=== PATIENT | male | born 1935 | race Caucasian/White ===

== ENCOUNTER 2017-11-28 07:10 | Outpatient (CLI) | payer OTHER ==
[~2017-11-28 07:10] MED LIST: AVAPRO150 MG; CALTRATE 600600 MG; ECOTRIN325 M1; GLIMEPIRIDE2 MG; KOMBIGLYZE XR1 EAC1; VYTORIN 10-40 M1 TAB
== END 2017-11-28 07:28 | disposition home or self-care (01) ==
LOC: LAB 07:10
DX: I10 Essential (primary) hypertension (principal); I70.0 Atherosclerosis of aorta; I67.2 Cerebral atherosclerosis; E78.2 Mixed hyperlipidemia; E03.8 Other specified hypothyroidism; D64.89 Other specified anemias; M15.0 Primary generalized (osteo)arthritis; M85.89 Other specified disorders of bone density and structure, multiple sites; J43.2 Centrilobular emphysema; D49.2 Neoplasm of unspecified behavior of bone, soft tissue, and skin; Z68.26 Body mass index [BMI] 26.0-26.9, adult; N40.0 Benign prostatic hyperplasia without lower urinary tract symptoms; R97.0 Elevated carcinoembryonic antigen [CEA]; D51.1 Vitamin B12 deficiency anemia due to selective vitamin B12 malabsorption with proteinuria; D51.3 Other dietary vitamin B12 deficiency anemia; E55.9 Vitamin D deficiency, unspecified; E08.65 Diabetes mellitus due to underlying condition with hyperglycemia; Z86.010 Personal history of colon polyps; K63.5 Polyp of colon; D51.8 Other vitamin B12 deficiency anemias; R97.8 Other abnormal tumor markers; D50.8 Other iron deficiency anemias

== ENCOUNTER 2018-05-28 07:56 | Outpatient (CLI) | payer OTHER | END 2018-05-28 08:59 | disposition home or self-care (01) | LOC: LAB 07:56 | DX: R97.0 Elevated carcinoembryonic antigen [CEA] (principal); J44.1 Chronic obstructive pulmonary disease with (acute) exacerbation; D51.1 Vitamin B12 deficiency anemia due to selective vitamin B12 malabsorption with proteinuria; D51.3 Other dietary vitamin B12 deficiency anemia; E55.9 Vitamin D deficiency, unspecified; I10 Essential (primary) hypertension; E78.4 Other hyperlipidemia; E08.65 Diabetes mellitus due to underlying condition with hyperglycemia; Z86.010 Personal history of colon polyps; K63.5 Polyp of colon; D50.8 Other iron deficiency anemias; R97.8 Other abnormal tumor markers ==

== ENCOUNTER 2018-09-01 11:04 | Emergency (ER) | payer OTHER ==
[~2018-09-01] VITALS: Ht 175.3 cm; Wt 67.1 kg
[2018-09-01] MEDS ORDERED: MAXIMUM D310000 UNIT (11:26)
[2018-09-01] MEDS ORDERED: CALCIUM600 MG (11:26)
[2018-09-01] MEDS ORDERED: GLUCOPHAGE XR500 MG (11:27)
[2018-09-01] MEDS ORDERED: SYNTHROID50 MCG (11:27)
[2018-09-01] MEDS ORDERED: B-COMPLEX WITH1 EAC1 (11:27)
[2018-09-01] MEDS ORDERED: AVAPRO300 MG (11:28)
[2018-09-01] MEDS ORDERED: AMARYL (11:29)
== END 2018-09-01 16:06 | disposition home or self-care (01) ==
LOC: ER 11:04
DX: J06.9 Acute upper respiratory infection, unspecified (principal); B34.9 Viral infection, unspecified

== ENCOUNTER 2018-12-31 10:37 | Outpatient (CLI) | payer OTHER ==
[~2018-12-31 10:37] MED LIST changes: +AMARYL; +AVAPRO300 MG; +B-COMPLEX WITH1 EAC1; +CALCIUM600 MG; +GLUCOPHAGE XR500 MG; +MAXIMUM D310000 UNIT; +SYNTHROID50 MCG
== END 2018-12-31 15:30 | disposition home or self-care (01) ==
LOC: LAB 10:37
DX: I10 Essential (primary) hypertension (principal); I70.0 Atherosclerosis of aorta; I67.2 Cerebral atherosclerosis; E03.8 Other specified hypothyroidism; D64.89 Other specified anemias; M15.0 Primary generalized (osteo)arthritis; M85.89 Other specified disorders of bone density and structure, multiple sites; J43.2 Centrilobular emphysema; D49.2 Neoplasm of unspecified behavior of bone, soft tissue, and skin; Z68.26 Body mass index [BMI] 26.0-26.9, adult; E55.9 Vitamin D deficiency, unspecified; D50.8 Other iron deficiency anemias; D51.1 Vitamin B12 deficiency anemia due to selective vitamin B12 malabsorption with proteinuria; D51.3 Other dietary vitamin B12 deficiency anemia; R97.0 Elevated carcinoembryonic antigen [CEA]; E78.49 Other hyperlipidemia; Z86.010 Personal history of colon polyps; K63.5 Polyp of colon; E08.65 Diabetes mellitus due to underlying condition with hyperglycemia; D51.8 Other vitamin B12 deficiency anemias; K90.89 Other intestinal malabsorption; R97.8 Other abnormal tumor markers

== ENCOUNTER 2019-09-02 08:32 | Outpatient (CLI) | payer OTHER | END 2019-09-02 08:43 | disposition home or self-care (01) | LOC: LAB 08:32 | DX: I67.2 Cerebral atherosclerosis (principal); B96.5 Pseudomonas (aeruginosa) (mallei) (pseudomallei) as the cause of diseases classified elsewhere; I70.0 Atherosclerosis of aorta; I10 Essential (primary) hypertension; E03.8 Other specified hypothyroidism; D64.89 Other specified anemias; M15.0 Primary generalized (osteo)arthritis; M81.0 Age-related osteoporosis without current pathological fracture; M25.562 Pain in left knee; M25.561 Pain in right knee; J43.2 Centrilobular emphysema; D49.2 Neoplasm of unspecified behavior of bone, soft tissue, and skin; N39.0 Urinary tract infection, site not specified; Z68.27 Body mass index [BMI] 27.0-27.9, adult; D50.8 Other iron deficiency anemias; D51.1 Vitamin B12 deficiency anemia due to selective vitamin B12 malabsorption with proteinuria; R97.0 Elevated carcinoembryonic antigen [CEA]; E55.9 Vitamin D deficiency, unspecified; E78.49 Other hyperlipidemia; Z86.010 Personal history of colon polyps; K63.5 Polyp of colon; E08.65 Diabetes mellitus due to underlying condition with hyperglycemia; R97.20 Elevated prostate specific antigen [PSA]; D51.8 Other vitamin B12 deficiency anemias ==

== ENCOUNTER → 2019-12-03 09:09 | Outpatient (CLI) | payer OTHER | END | disposition home or self-care (01) | LOC: LAB 09:09 | DX: I70.0 Atherosclerosis of aorta (principal); I10 Essential (primary) hypertension; I67.2 Cerebral atherosclerosis; E03.8 Other specified hypothyroidism; D64.89 Other specified anemias; M15.0 Primary generalized (osteo)arthritis; M81.0 Age-related osteoporosis without current pathological fracture; M25.562 Pain in left knee; M25.561 Pain in right knee; J43.2 Centrilobular emphysema; D49.2 Neoplasm of unspecified behavior of bone, soft tissue, and skin; E53.9 Vitamin B deficiency, unspecified; Z68.27 Body mass index [BMI] 27.0-27.9, adult; N39.0 Urinary tract infection, site not specified; D50.8 Other iron deficiency anemias; D51.1 Vitamin B12 deficiency anemia due to selective vitamin B12 malabsorption with proteinuria; D51.3 Other dietary vitamin B12 deficiency anemia; R97.0 Elevated carcinoembryonic antigen [CEA]; E55.9 Vitamin D deficiency, unspecified; E78.49 Other hyperlipidemia; Z86.010 Personal history of colon polyps; K63.5 Polyp of colon; E08.65 Diabetes mellitus due to underlying condition with hyperglycemia; R97.20 Elevated prostate specific antigen [PSA]; D51.8 Other vitamin B12 deficiency anemias; D61.3 Idiopathic aplastic anemia; N18.4 Chronic kidney disease, stage 4 (severe) ==

== ENCOUNTER 2020-06-02 08:41 | Outpatient (CLI) | payer OTHER | END 2020-06-02 15:00 | disposition home or self-care (01) | LOC: LAB 08:41 | PROVIDERS: ATTEND Internal Medicine Hematology & Oncology | DX: D50.8 Other iron deficiency anemias (principal); D63.1 Anemia in chronic kidney disease; N18.3 Chronic kidney disease, stage 3 (moderate); E03.8 Other specified hypothyroidism; R97.0 Elevated carcinoembryonic antigen [CEA]; R97.8 Other abnormal tumor markers; D51.1 Vitamin B12 deficiency anemia due to selective vitamin B12 malabsorption with proteinuria; D51.3 Other dietary vitamin B12 deficiency anemia; J44.9 Chronic obstructive pulmonary disease, unspecified; E55.9 Vitamin D deficiency, unspecified; E78.49 Other hyperlipidemia; Z86.010 Personal history of colon polyps; K63.5 Polyp of colon; E08.65 Diabetes mellitus due to underlying condition with hyperglycemia; R97.20 Elevated prostate specific antigen [PSA] ==

== ENCOUNTER 2020-06-09 09:55 | Outpatient (CLI) | payer OTHER | END 2020-06-09 10:01 | disposition home or self-care (01) | LOC: TOM 09:55 | PROVIDERS: ATTEND Psychiatry & Neurology Clinical Neurophysiology | DX: G30.1 Alzheimer's disease with late onset (principal); F01.50 Vascular dementia, unspecified severity, without behavioral disturbance, psychotic disturbance, mood disturbance, and anxiety ==

== ENCOUNTER 2020-12-02 08:10 | Outpatient (CLI) | payer OTHER | END 2020-12-02 08:19 | disposition home or self-care (01) | LOC: LAB 08:10 | PROVIDERS: ATTEND Internal Medicine Hematology & Oncology | DX: D50.8 Other iron deficiency anemias (principal); I10 Essential (primary) hypertension; D63.1 Anemia in chronic kidney disease; E03.8 Other specified hypothyroidism; R97.0 Elevated carcinoembryonic antigen [CEA]; R97.8 Other abnormal tumor markers; R97.20 Elevated prostate specific antigen [PSA]; D51.1 Vitamin B12 deficiency anemia due to selective vitamin B12 malabsorption with proteinuria; D51.3 Other dietary vitamin B12 deficiency anemia; J44.9 Chronic obstructive pulmonary disease, unspecified; E55.9 Vitamin D deficiency, unspecified; E78.49 Other hyperlipidemia; K63.5 Polyp of colon; E08.65 Diabetes mellitus due to underlying condition with hyperglycemia ==

== ENCOUNTER → 2021-06-29 06:09 | Outpatient (CLI) | payer OTHER | END | disposition home or self-care (01) | LOC: LAB 06:09 | PROVIDERS: ATTEND Internal Medicine Hematology & Oncology | DX: D50.8 Other iron deficiency anemias (principal); R79.89 Other specified abnormal findings of blood chemistry; I10 Essential (primary) hypertension; R74.02 Elevation of levels of lactic acid dehydrogenase [LDH]; K76.89 Other specified diseases of liver; D63.1 Anemia in chronic kidney disease; R97.0 Elevated carcinoembryonic antigen [CEA]; R97.8 Other abnormal tumor markers; R97.20 Elevated prostate specific antigen [PSA]; D51.1 Vitamin B12 deficiency anemia due to selective vitamin B12 malabsorption with proteinuria; D51.3 Other dietary vitamin B12 deficiency anemia; E08.65 Diabetes mellitus due to underlying condition with hyperglycemia; J44.9 Chronic obstructive pulmonary disease, unspecified; E55.9 Vitamin D deficiency, unspecified; E78.49 Other hyperlipidemia; Z86.010 Personal history of colon polyps; K63.5 Polyp of colon ==